=== PATIENT | female | born 1980 | race Caucasian/White ===

== ENCOUNTER 2017-08-15 11:37 | Emergency (ER) | payer OTHER ==
[2017-08-15] MEDS ORDERED: NS 1,000 ML IV ONE (12:28)
[2017-08-15] MEDS ORDERED: ONDANSETRON 4 MG/2 ML VIAL IVP ONE (12:28)
--- NOTE | 2017-08-15 12:28 | EDPHY ---
H & P Stated Complaint: Pressure in left side of head, numbness, dizziness for 2 weeks Time Seen by Provider: 08/15/17 12:27 HPI/ROS: CHIEF COMPLAINT: Nausea, vomiting, vertigo, headache HISTORY OF PRESENT ILLNESS: The patient has had a several week history of progressive headache which she describes as sharp left retro-orbital and a mild bilateral frontal headache. She has had associated symptoms of intermittent vertigo, nausea and vomiting. The patient denies any neck pain. She denies recent fall or chiropractic manipulation. She has no history of collagen vascular disease. The patient does have a history of fibromyalgia and "menstrual migraines " she states this headache is atypical for her usual migraine headaches. The patient reports that her symptoms of vertigo are positional in worsened with movement of her head to the left. She denies additional acute complaints. REVIEW OF SYSTEMS: A comprehensive 10 point review of systems is otherwise negative aside from elements mentioned in the history of present illness. Source: Patient - Personal History LMP (Females 10-55): 8-14 Days Ago Current Tetanus Diphtheria and Acellular Pertussis (TDAP): Yes - Medical/Surgical History Hx Asthma: No Hx Chronic Respiratory Disease: No Hx Diabetes: No Hx Cardiac Disease: No Hx Renal Disease: No Hx Cirrhosis: No Hx Alcoholism: No Hx HIV/AIDS: No Hx Splenectomy or Spleen Trauma: No Other PMH: Menstral migraines. Fibromyalgia. - Social History Smoking Status: Never smoked - Physical Exam Exam: General Appearance: Alert, mild discomfort secondary to pain Eyes: Pupils equal and round no pallor or injection ENT, Mouth: Mucous membranes moist Respiratory: There are no retractions, lungs are clear to auscultation Cardiovascular: Regular rate and rhythm Gastrointestinal: Abdomen is soft and nontender, no masses, bowel sounds normal Neurological: A&O, normal motor function, normal sensory exam, normal cranial nerves Skin: Warm and dry, no rashes Musculoskeletal: Neck is supple nontender, no carotid bruit, no clinical evidence of meningismus Extremities: symmetrical, full range of motion Constitutional: Initial Vital Signs Temperature (C) 36.9 C 08/15/17 11:38 Heart Rate 99 08/15/17 11:38 Respiratory Rate 16 08/15/17 11:38 Blood Pressure 140/87 H 08/15/17 11:38 O2 Sat (%) 99 08/15/17 11:38 O2 Delivery Mode Room Air Allergies/Adverse Reactions: No Known Allergies Allergy (Verified 05/02/13 12:54) Home Medications: Medication Instructions Recorded FLUoxetine [Prozac] 20 mg PO DAILY 01/17/11 SUMAtriptan [Imitrex] 25 mg PO AD PRN 01/17/11 Clomiphene Citrate [Clomid] 50 mg PO 05/02/13 Hydrocodone/APAP 5/325 [[place] 1 - 2 each PO Q6 PRN #20 tab 08/15/17 5/325] Ondansetron Odt [Zofran Odt] 4 mg PO Q4PRN PRN #20 tab 08/15/17 Medical Decision Making - Diagnostics Imaging Results: Imaging Impressions Brain MRI 08/15/17 12:49 Impression: Normal MRI of the brain without contrast. Results called and discussed with Larry Rizo at 08/15/2017 1403 hours. Head MRA 08/15/17 12:49 Impression: No evidence of venous sinus thrombosis. Results called and discussed with Larry Rizo at 08/15/2017 1403 hours. ED Course/Re-evaluation: The patient presents to the ED with symptoms consistent with peripheral vertigo but also with a new atypical left-sided headache. The patient has no fever or meningeal symptoms. She has no obvious abnormalities noted on her neurologic exam aside from horizontal nystagmus. The patient had an IV established. She received IV fluids, Zofran and oral meclizine. Given her complaints of an atypical left-sided headache she was taken for an MRI in the setting of her acute vertigo. This demonstrates no evidence of a stroke, [employer]ORD[employer]ATOR thrombosis or intracranial mass. The patient was re-evaluated by myself several times throughout her stay in the emergency department. She at this point time I do feel that she can be discharged home with prescriptions for management of her headache, nausea and vertigo. The patient received IV Toradol. I re-evaluated the patient at 3:15 p.m.. She continues to complain of an ongoing left retro-orbital headache. The patient received 15 mg of ketamine. Re-evaluated the patient at 3:45 p.m.. She is currently feeling better. Neurologic examination remains normal. Question whether this may be a component of trigeminal neuralgia. The patient is currently on gabapentin. I have recommended that she follow up with Neurology for further evaluation. She has been given customary aftercare instructions and return precautions. The patient will be advised to return to the ED for any worsening symptoms or other concerns. She is given the contact number of our on-call neurologist for any ongoing symptoms. Differential Diagnosis: Differential diagnosis considered includes stroke, intracranial hemorrhage, meningitis, [employer]ORDINATOR thrombosis, [employer]ATOR tumor, peripheral vertigo, central vertigo - Data Points Medications Given: Discontinued Medications Sodium Chloride (Ns) 1,000 mls @ 0 mls/hr IV EDNOW ONE; Wide Open PRN Reason: Protocol Stop: 08/15/17 12:29 Last Admin: 08/15/17 12:46 Dose: 1,000 mls Ketorolac Tromethamine (Toradol) 30 mg IVP EDNOW ONE Stop: 08/15/17 15:20 Last Admin: 08/15/17 15:20 Dose: 30 mg Ketorolac Tromethamine (Toradol) 15 mg IVP/IM EDNOW ONE Stop: 08/15/17 15:35 Last Admin: 08/15/17 15:40 Dose: Not Given Morphine Sulfate (Morphine) 4 mg IVP EDNOW ONE Stop: 08/15/17 12:52 Last Admin: 08/15/17 12:52 Dose: 4 mg Ondansetron HCl (Zofran) 4 mg IVP EDNOW ONE Stop: 08/15/17 12:29 Last Admin: 08/15/17 12:46 Dose: 4 mg Departure - Departure Disposition: Home, Routine, Self-Care Clinical Impression: Vertigo, Headache Condition: Good Instructions: Vertigo (ED) Additional Instructions: 1. Zofran as needed for nausea. Meclizine as needed for dizziness. 2. Take Ibuprofen or Motrin 600 mg by mouth three times a day. 3. Wheatland as needed for severe pain 4. Please schedule a follow-up appointment with your primary care provider and the neurologist you have been referred to for any unimproved symptoms. 5. Please return to the ED for markedly worsening symptoms, fever, neck stiffness or other concerns. Referrals: Tamy Ortiz MD [Primary Care Provider] - As per Instructions Carolina Woods DO [Non Staff and Non MD] - As per Instructions Prescriptions: Hydrocodone/APAP 5/325 [[place]heatland 5/325] 1 - 2 each PO Q6 PRN #20 tab PRN Reason: for pain Ondansetron Odt [Zofran Odt] 4 mg PO Q4PRN PRN #20 tab PRN Reason: For Nausea
[2017-08-15] MEDS ORDERED: KETOROLAC 30 MG/1 ML SDV IVP ONE (15:19)
[2017-08-15] MEDS ORDERED: KETOROLAC 30 MG/1 ML SDV ONE (15:19)
[2017-08-15] MEDS ORDERED: KETOROLAC 15 MG/1 ML SDV IVP/IM ONE (15:34)
[2017-08-15 15:59] VITALS: BP 114/80; PULSE 92; RESP 18; TEMP 98.1; O2SAT 96
[2017-08-15] MEDS ORDERED: OXYCODONE/APAP 5/325 TAB PO ONE (16:07)
== END 2017-08-15 16:20 | disposition home or self-care (01) ==
DX: R42 Dizziness and giddiness (principal); R51 Headache; E86.9 Volume depletion, unspecified
CPT/HCPCS: 96374; J1885; J2405

== ENCOUNTER 2019-02-02 06:05 | Day surgery (SDC) | payer OTHER ==
[2019-02-02] MEDS ORDERED: LR 1,000 ML IV ONE (06:12)
[2019-02-02] MEDS ORDERED: MIDAZOLAM 2 MG/2 ML VIAL IVP ONE (06:53)
[2019-02-02] MEDS ORDERED: ceFAZolin 2 GM/DEXTROSE 100 ML IV ONE (06:54)
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
--- NOTE | 2019-02-02 06:58 | PDGENHP ---
History and Physical - Chief Complaint Preop: Diagnostic laparoscopy, treatment of endo, Chromopertubation - History of Present Illness 38 yo who I saw in clinic regarding heavy, painful periods w/ h/o endometriosis first diagnosed by [facility] in 2004. At that time she did have some resected, some ablated. Then went on to have 2 successful pregnancies. Now considering a 3rd . Interested in DxLS, tx of lesions if present, chromopertubation. History Information - Allergies/Home Medication List Allergies/Adverse Reactions: No Known Allergies Allergy (Verified 05/02/13 12:54) Home Medications: FLUoxetine [Prozac] 20 mg PO DAILY 01/17/11 [Last Taken 02/01/19] SUMAtriptan [Imitrex] 25 mg PO AD PRN 01/17/11 [Last Taken 01/31/19] Herbals/Supplements -Info Only 01/21/19 [Last Taken 01/31/19] Wellbutrin 100mg (*) 01/21/19 [Last Taken 02/01/19] I have personally reviewed and updated: family history, medical history, social history, surgical history Past Medical History: Migraine, Depression/anxiety, Endometriosis, kindney stones, ostepenia - Surgical History Additional surgical history: DxLS w treatment of endo in 2002 - Family History Positive for: non-pertinent - Social History Smoking Status: Never smoked Review of Systems Review of Systems: ROS: 10pt was reviewed & negative except for what was stated in HPI & below Physical Exam Physical Exam: Temp Pulse Resp BP Pulse Ox 36.8 C 94 20 127/81 H 96 02/02/19 06:21 02/02/19 06:21 02/02/19 06:21 02/02/19 06:21 02/02/19 06:21 Constitutional: no apparent distress, appears nourished, not in pain Eyes: anicteric sclera Ears, Nose, Mouth, Throat: moist mucous membranes Respiratory: no respiratory distress Assessment & Plan Assessment: Preop: DxLS, treatment of Endo, chromopertubation. - Routine preop orders, 2g Ancef. - Home same day. KAMILAH
[2019-02-02] MEDS ORDERED: SILVER NITRATE APPLICATOR 1 APPL TP ONE (06:59)
[2019-02-02] MEDS ORDERED: BUPIVACAINE/EPI 0.25% 30 ML SDV ONE (06:59)
[2019-02-02] MEDS ORDERED: PROPOFOL 200 MG/20 ML VIAL ONE (07:00)
[2019-02-02] MEDS ORDERED: fentaNYL 100 MCG/2 ML INJ ONE ×2 (07:00→08:45)
[2019-02-02] MEDS ORDERED: ROCURONIUM 50 MG/5 ML VIAL ONE (07:01)
[2019-02-02] MEDS ORDERED: METHYLENE BLUE 0.5% 50 MG/10 ML AMP ONE ×2 (07:13→08:18)
[2019-02-02] MEDS ORDERED: DEXAMETHASONE 4 MG/ML VIAL ONE ×2 (07:39)
[2019-02-02] MEDS ORDERED: KETOROLAC 30 MG/1 ML SDV ONE (08:10)
[2019-02-02] MEDS ORDERED: ONDANSETRON 4 MG/2 ML VIAL ONE (08:10)
[2019-02-02] MEDS ORDERED: HYDROCODONE/APAP 5/325 TAB PO PRN (08:19)
[2019-02-02] MEDS ORDERED: NALOXONE HCL 0.4 MG/ML INJ IVP PRN (08:19)
[2019-02-02] MEDS ORDERED: DEXAMETHASONE 4 MG/ML VIAL IVP PRN (08:19)
[2019-02-02] MEDS ORDERED: MEPERIDINE 25 MG/0.5 ML AMP IVP PRN (08:19)
[2019-02-02] MEDS ORDERED: LR 500 ML IV PRN (08:19)
[2019-02-02] MEDS ORDERED: METOCLOPRAMIDE 10 MG/2 ML VIAL IVP PRN (08:19)
[2019-02-02] MEDS ORDERED: ALBUTEROL 3 ML DEYVIAL IH PRN (08:19)
[2019-02-02] MEDS ORDERED: PROMETHAZINE HCL 25 MG/ML INJ IVP PRN (08:19)
[2019-02-02] MEDS ORDERED: HYDROmorphONE/DILAUDID 1 MG/ML INJ IVP PRN (08:19)
[2019-02-02] MEDS ORDERED: oxyCODONE IR 5 MG TAB PO PRN (08:19)
[2019-02-02] MEDS ORDERED: ACETAMINOPHEN 500 MG TAB PO PRN (08:19)
[2019-02-02] MEDS ORDERED: ONDANSETRON 4 MG/2 ML VIAL IVP PRN (08:19)
[2019-02-02] MEDS ORDERED: NEOSTIGMINE METHYLSULFATE 10 MG/10 ML MDV ONE (08:22)
[2019-02-02] MEDS ORDERED: GLYCOPYRROLATE 0.2 MG/1 ML VIAL ONE (08:22)
[2019-02-02] MEDS: fentaNYL 100 MCG/2 ML INJ IVP PRN ×2 (08:48→08:58)
--- NOTE | 2019-02-02 08:51 | POSTOPPROG ---
Post Op Note Date of Operation: 02/02/19 Surgeon: Francisco Charles Colorist Formulator: Rowan Joyce Anesthesiologist: Loli So Anesthesia: GET(General Endotracheal) Pre-op Diagnosis: Endometriosis, menorrhagia, dysmenorrhea Post-op Diagnosis: Same, Minimal endometriosis Procedure: DxLS, fulguration of endo, removal paratubal cyst, chromopertubation Findings: Minimal endometriosis, few lesions/scar on right uterosacral, open tubes Inf/Abcess present in the surg proc area at time of surgery?: No EBL: Minimal Complications: None Specimen(s): Left paratubal cyst
--- NOTE | 2019-02-02 08:53 | SUROPNOTE ---
[facility] Operative Report - Surgery Date of Operation: 02/02/19 Surgeon: Francisco Charles Sales Program Manager: Rowan Joyce Anesthesiologist: Loli So Anesthesia: GET(General Endotracheal) Pre-op Diagnosis: 1. Endometriosis 2. Menorrhagia 3. Dysmenorrhea Post-op Diagnosis: 1. Same 2. Minimal endometriosis (Stage I) 3. Patent fallopian tubes, bilaterally Procedure: 1. DxLS 2. Fulguration of endo 3. Removal paratubal cyst 4. Chromopertubation Findings: Minimal endometriosis, few lesions/scar on right uterosacral, open tubes Inf/Abcess present in the surg proc area at time of surgery?: No EBL: Minimal Complications: None Specimen(s): Left paratubal cyst Technique: The patient was brought to the operating room where she was ergonomically positioned in low lithotomy position in Anibal stirrups. General anesthesia was established without issue. The arms were tucked at the patients side with care to not generate any pressure points. She was prepped and draped in standard fashion after a time-out was performed. An acorn was placed on the cervix to assist with uterine manipulation. A de jesus catheter was placed under sterile conditions. A 5mm vertical incision was made in the base of the umbilicus after injection of local anesthetic. The anterior abdominal wall was lifted as the Veress needle was carefully inserted into the abdomen at a 45% angle from vertical. Intraabdominal placement was confirmed with hanging drop test and low initial insufflation pressures. Once the abdomen was adequately insufflated with CO2 gas the Veress was removed and a 5mm Optiview non-bladed trocar was introduced into the abdomen without complication under direct visualization with the camera within the trocar. Once inside a brief scan of the abdomen revealed no injuries upon entry. At this point 2 additional 5mm ports were placed in the bilateral lower quadrants after injection of local. Additional pictures were taken of intra-abdominal organs/structures as noted in findings. We were able to visualize small endometriosis lesions on the uterosacral ligaments bilaterally and on the posterior uterus within the culdesac. Other than those focal lesions no other evidence of endometriosis however. Tubes blunted and tortuous on both sides. Paratubal cyst identified and removed on the patient's left. We cauterized those spots of endometriosis using monopolar energy with the endoshears. Lastly we performed chromopertubation by instilling a volume of saline mixed with 3 drops of methylene blue due into the uterus and we were able to confirm spillage of that fluid out of both tubal ostia. Bilaterally open tubes. To conclude the pelvis was copiously irrigated and complete hemostasis was noted, even with lowered intra-abdominal pressure. All trocars were removed, gas was allowed to escape the abdomen, and skin incisions closed with single subcuticular stitches of 4-0 monocryl and then covered with Dermabond. The pt was extubated uneventfully and taken to the PACU in stable condition. Lap, needle and instrument counts were announced as correct at the conclusion of the case. I was scrubbed and present for the entire procedure.
[2019-02-02] MEDS ORDERED: oxyCODONE IR 5 MG TAB ONE (09:36)
[2019-02-02 10:57] VITALS: BP 119/74
--- NOTE | 2019-02-02 14:09 | POSTANESTH ---
Post Anesthetic Evaluation Cardiovascular Status: Normal, Stable Respiratory Status: Normal, Stable Level of Consciousness/Mental Status: Can Participate in Eval Pain Control: Adequate, Prn Tx Ordered Nausea/Vomiting Control: Adequate, Prn Tx Ordered Complications Possibly Related to Anesthesia: None Noted
== END 2019-02-02 11:48 | disposition home or self-care (01) ==
LOC: FSGY 06:05
PROVIDERS: ATTEND Obstetrics & Gynecology
PROC: 3E0P7KZ Introduction of Other Diagnostic Substance into Female Reproductive, Via Natural or Artificial Opening (ICD-10-PCS; principal; 2019-02-02 07:15)
PROC: 0U544ZZ Destruction of Uterine Supporting Structure, Percutaneous Endoscopic Approach (ICD-10-PCS; principal; 2019-02-02 07:15)
DX: N80.0 Endometriosis of uterus (principal); N80.3 Endometriosis of pelvic peritoneum; N83.8 Other noninflammatory disorders of ovary, fallopian tube and broad ligament; N92.0 Excessive and frequent menstruation with regular cycle; N94.6 Dysmenorrhea, unspecified; F32.9 Major depressive disorder, single episode, unspecified; F41.9 Anxiety disorder, unspecified
CPT/HCPCS: J0690; J1100; J1885; J2250; J2405; J2704; J3010; Q9968